=== PATIENT | female | born 1950 | race Caucasian/White ===

== ENCOUNTER 2020-09-18 14:49 | Emergency (ER) | payer MEDICARE ==
[~2020-09-18 14:49] MED LIST: ADVAIR 100-501 EACH INH; ADVAIR 250/5028 PUFF INH; ALPRAZOLAM 0.50.5 MG PO; AMLODIPINE BESYL5 MG PO; ANTIVERT25 MG PO; ASCORBIC ACID500 MG PO; ATIVAN1 MG PO; AUGMENTIN 500-1 EACH PO; AZITHROMYCIN250 MG PO; BACLOFEN 20MG T20 MG PO; BUSPIRONE HCL15 MG PO; CARAFATE1 GM PO; CEFDINIR300 MG PO; CELEBREX PO; CELECOXIB50 MG PO; CLARITIN10 MG PO; CYMBALTA20 MG PO; CYMBALTA60 MG PO; DICLOFENAC SODI75 MG PO; FEOSOL325 MG PO; FLUOXETINE HCL20 MG PO; HCTZ12.5 MG PO; HYDROCODON-ACE1 EAC2 PO; HYDROCODON-ACE1 EAC4 PO; IBUPROFEN400 MG PO; K-DUR20 MEQ PO; LIPITOR 10MG TA10 MG PO; LISINOPRIL-HCT1 EACH PO; LISINOPRIL20 MG PO; MEDROL 4MG DOSEP4 MG PO; NARCAN4 MG; NORCO 5-325 TA1 EACH PO; NORCO 7.5-3251 EACH PO; NORVASC5 MG PO; PREDNISONE 20MG20 MG PO; PREDNISONE20 MG PO; PRINIVIL20 MG PO; PROTONIX 40MG T40 MG PO; PROZAC20 MG PO; REMERON15 MG PO; SINGULAIR10 MG PO; SUMATRIPTAN SUC25 MG PO; TOPROL XL 25MG25 MG PO; TRAZODONE 100M100 MG PO; VENTOLIN (2.5 MG/3 M INH; VENTOLIN HFA IN18 GM INH; VOLTAREN **OUT75 MG PO; VOLTAREN100 GM TOP; XANAX0.5 MG PO; ZPAK PO; ZYPREXA 5MG TABL5 MG PO; ZYPREXA5 MG PO
[2020-09-18 17:27] LABS: BASOPHIL 0.3 % (0-2); EOSINOPHIL 1.4 % (0-7); HGB 13.3 g/dl (12.5-16.0); LYMPHOCYTE 19.1 % (15-48); MCH 30.2 pg (25.0-31.0); MCHC 33.3 g/dL (32.0-36.0); MCV 90.7 fL (78.0-100.0); MONOCYTE 5.7 % (0-12); MPV 9.6 fL (6.0-9.5); NEUTROPHIL 73.1 % (41-80); NRBC 0; PLT 325 K/uL (150-400); RBC 4.41 M/uL (4.20-5.40); RDW 12.8 % (11.5-14.0); WBC 11.8 K/uL (4.0-10.5)
[2020-09-18 17:35] LABS: ALBUMIN 2.9 g/dL (3.4-5.0); BILIRUBIN - TOTAL 0.1 mg/dL (0.2-1.0); BUN/CREAT RATIO (CALC) 13.6 RATIO; CREATININE 0.59 mg/dL (0.51-0.95); POTASSIUM 3.3 mmol/L (3.5-5.1); TOTAL PROTEIN 5.9 g/dL (6.4-8.2)
[2020-09-18 18:43] LABS: BILIRUBIN NEGATIVE (NEGATIVE); BLOOD NEGATIVE Ery/uL (NEGATIVE); CLARITY CLEAR (CLEAR); COLOR YELLOW (YELLOW); GLUCOSE (U) NORMAL (NORMAL); LEUKOCYTES NEGATIVE Leu/uL (NEGATIVE); NITRITE NEGATIVE (NEGATIVE); PROTEIN NEGATIVE (NEGATIVE); SPECIFIC GRAVITY <=1.005 (1.001-1.030); UROBILINOGEN 0.2 mg/dL (0.2-1.0)
[2020-09-18 18:47] LABS: LACTIC ACID 0.5 mmol/L (0.4-1.9)
[2020-09-18] MEDS ORDERED: ZOFRAN4 M1 PO (19:08)
== END 2020-09-18 19:24 | disposition home or self-care (01) ==
LOC: FER 14:49
PROVIDERS: Nurse Practitioner Family
DX: R11.2 Nausea with vomiting, unspecified (principal); R10.11 Right upper quadrant pain; M54.5 Low back pain; R53.83 Other fatigue; R63.0 Anorexia; I10 Essential (primary) hypertension; J44.9 Chronic obstructive pulmonary disease, unspecified; F17.210 Nicotine dependence, cigarettes, uncomplicated; Z88.8 Allergy status to other drugs, medicaments and biological substances
CPT/HCPCS: 36415; 80053; 81003; 83605; 83690; 85025; J1885; J7030; Q9967

== ENCOUNTER 2020-10-10 08:38 | Day surgery (SDCO) | payer MEDICARE ==
[~2020-10-10 08:38] MED LIST changes: +ZOFRAN4 M1 PO
[2020-10-10 09:28] LABS: BILIRUBIN NEGATIVE (NEGATIVE); BLOOD NEGATIVE Ery/uL (NEGATIVE); CLARITY CLEAR (CLEAR); COLOR YELLOW (YELLOW); GLUCOSE (U) NORMAL (NORMAL); LEUKOCYTES NEGATIVE Leu/uL (NEGATIVE); NITRITE NEGATIVE (NEGATIVE); PROTEIN NEGATIVE (NEGATIVE); UROBILINOGEN 0.2 mg/dL (0.2-1.0)
[2020-10-10 09:30] LABS: AMPHETAMINES NEGATIVE (NEGATIVE); BARBITURATES NEGATIVE (NEGATIVE); ECSTASY (MDMA) NEGATIVE (NEGATIVE); MARIJUANA (THC) NEGATIVE (NEGATIVE); METHADONE NEGATIVE (NEGATIVE); OPIATES NEGATIVE (NEGATIVE); OXYCODONE NEGATIVE (NEGATIVE)
[2020-10-10 10:02] LABS: BASOPHIL 0.5 % (0-2); EOSINOPHIL 1.9 % (0-7); HCT 42.9 % (37.0-47.0); LYMPHOCYTE 14.7 % (15-48); MCH 29.8 pg (25.0-31.0); MCHC 32.6 g/dL (32.0-36.0); MCV 91.3 fL (78.0-100.0); MONOCYTE 6.3 % (0-12); MPV 10.2 fL (6.0-9.5); NEUTROPHIL 75.3 % (41-80); NRBC 0; PLT 343 K/uL (150-400); RDW 13.1 % (11.5-14.0); WBC 10.9 K/uL (4.0-10.5)
[2020-10-10 10:20] LABS: INR 0.94 (0.9-1.2); PROTHROMBIN TIME 11.9 SECONDS (11.4-13.6); PTT 32.1 SECONDS (22.2-34.7)
[2020-10-10 10:28] LABS: ALBUMIN 3.1 g/dL (3.4-5.0); ALKALINE PHOSHATASE 77 U/L (46-116); ALT 14 U/L (14-59); AST 12 U/L (15-37); BILIRUBIN - TOTAL 0.2 mg/dL (0.2-1.0); BUN 19 mg/dL (7-18); CHLORIDE 106 mmol/L (98-107); CO2 (BICARBONATE) 28 mmol/L (21-32); CREATININE 0.95 mg/dL (0.51-0.95); GLOBULIN (CALCULATION) 3.7 g/dL; GLUCOSE 100 mg/dL (74-106); POTASSIUM 3.7 mmol/L (3.5-5.1); TOTAL PROTEIN 6.8 g/dL (6.4-8.2)
[2020-10-10 10:48] LABS: LACTIC ACID 0.7 mmol/L (0.4-1.9)
[2020-10-10] MEDS ORDERED: HCTZ25 MG PO (14:14)
[2020-10-10] MEDS ORDERED: CRESTOR20 MG PO (14:15)
--- NOTE | 2020-10-11 01:25 | NUR ---
3365- Patient tells aide that she "was having a hard time breathing, chest pain, and my arm is hurting." Went to patients room to assess the patient, she was having 6/10 pain in the left arm, chest pain, 94% on 1 liter nasal cannula, 101 heart rate, BP 77/56. Patient requests pain medication 2 times during work up. I replied, "we'll have to see what the ROADABILITY MACHINE OPERATOR would like to order". Went to ROADABILITY MACHINE OPERATOR. EKG, stat troponin ordered and do not give pain medicine due to low BP. EKG resulted NSR and troponin came back negative at less than 0.017. ROADABILITY MACHINE OPERATOR ordered a liter bolus of normal saline to run at 500 ml/hr. Started bolus at 0019.
[2020-10-11 06:16] LABS: BASOPHIL 0.4 % (0-2); EOSINOPHIL 1.9 % (0-7); HCT 34.9 % (37.0-47.0); HGB 11.1 g/dl (12.5-16.0); LYMPHOCYTE 20.5 % (15-48); MCH 29.2 pg (25.0-31.0); MCHC 31.8 g/dL (32.0-36.0); MCV 91.8 fL (78.0-100.0); MONOCYTE 6.9 % (0-12); MPV 10.5 fL (6.0-9.5); NEUTROPHIL 69.3 % (41-80); NRBC 0; PLT 296 K/uL (150-400); RDW 13.2 % (11.5-14.0); WBC 8.4 K/uL (4.0-10.5)
[2020-10-11 06:46] LABS: ALBUMIN 2.4 g/dL (3.4-5.0); BILIRUBIN - TOTAL 0.1 mg/dL (0.2-1.0); BUN/CREAT RATIO (CALC) 22.6 RATIO; CREATININE 0.53 mg/dL (0.51-0.95); GLOBULIN (CALCULATION) 2.9 g/dL; POTASSIUM 3.4 mmol/L (3.5-5.1); TOTAL PROTEIN 5.3 g/dL (6.4-8.2)
[2020-10-12] MEDS ORDERED: TOPROL XL 25MG25 MG PO (07:54)
== END 2020-10-12 11:40 | disposition home health service (06) ==
LOC: FER 08:38 → FMS 12:42
PROVIDERS: Emergency Medicine; Nurse Practitioner; ADMIT Internal Medicine
DX: I95.1 Orthostatic hypotension (principal); J44.9 Chronic obstructive pulmonary disease, unspecified; G89.29 Other chronic pain; I10 Essential (primary) hypertension; K21.9 Gastro-esophageal reflux disease without esophagitis; R11.2 Nausea with vomiting, unspecified; R19.7 Diarrhea, unspecified; F31.9 Bipolar disorder, unspecified; F17.210 Nicotine dependence, cigarettes, uncomplicated; K27.9 Peptic ulcer, site unspecified, unspecified as acute or chronic, without hemorrhage or perforation; Z23 Encounter for immunization; Z79.891 Long term (current) use of opiate analgesic; Z79.899 Other long term (current) drug therapy; Z88.8 Allergy status to other drugs, medicaments and biological substances; Z20.822 Contact with and (suspected) exposure to COVID-19
CPT/HCPCS: 36415; 36600; 70450; 71045; 80053; 80305; 81003; 82803; 83605; 84484; 85025; 85610; 85730; 87088; 90662; 93005; 94010; 94640; 97162; 97165; 97530-GP; 97535; G0008; G0378; G0480; J1650; J7030; J7040; J7120; U0002

== ENCOUNTER 2020-11-28 10:26 | Inpatient (IN) | payer MEDICARE ==
[~2020-11-28 10:26] MED LIST changes: +CRESTOR20 MG PO; +HCTZ25 MG PO
[2020-11-28 11:41] LABS: INR 0.91 (0.9-1.2); PROTHROMBIN TIME 11.6 SECONDS (11.4-13.6)
[2020-11-28 11:49] LABS: LACTIC ACID 0.6 mmol/L (0.4-1.9)
[2020-11-28 11:51] LABS: BASOPHIL 0.4 % (0-2); EOSINOPHIL 2.8 % (0-7); HCT 40.6 % (37.0-47.0); HGB 13.5 g/dl (12.5-16.0); MCH 29.3 pg (25.0-31.0); MCHC 33.3 g/dL (32.0-36.0); MCV 88.3 fL (78.0-100.0); MONOCYTE 7.4 % (0-12); MPV 10.2 fL (6.0-9.5); NEUTROPHIL 72.8 % (41-80); NRBC 0; PLT 280 K/uL (150-400); RDW 13.2 % (11.5-14.0); WBC 10.2 K/uL (4.0-10.5)
[2020-11-28 11:52] LABS: BILIRUBIN - TOTAL 0.2 mg/dL (0.2-1.0); C-REACTIVE PROTEIN 4.2 mg/dL (<=0.90); CREATININE 0.92 mg/dL (0.51-0.95); GLOBULIN (CALCULATION) 3.3 g/dL; MAGNESIUM 1.3 mg/dL (1.8-2.4); POTASSIUM 3.3 mmol/L (3.5-5.1); TOTAL PROTEIN 6.3 g/dL (6.4-8.2)
[2020-11-28 12:15] LABS: BILIRUBIN NEGATIVE (NEGATIVE); BLOOD NEGATIVE Ery/uL (NEGATIVE); CLARITY CLEAR (CLEAR); COLOR YELLOW (YELLOW); GLUCOSE (U) NORMAL (NORMAL); LEUKOCYTES NEGATIVE Leu/uL (NEGATIVE); NITRITE NEGATIVE (NEGATIVE); PROTEIN NEGATIVE (NEGATIVE); UROBILINOGEN 0.2 mg/dL (0.2-1.0)
[2020-11-28] MEDS ORDERED: TOPROL XL 25MG25 MG PO (15:19)
[2020-11-28] MEDS ORDERED: SINGULAIR10 MG PO (15:20)
[2020-11-28] MEDS ORDERED: BACLOFEN 10MG T10 MG PO (15:21)
[2020-11-28] MEDS ORDERED: REMERON15 MG PO (15:22)
[2020-11-28] MEDS ORDERED: CYMBALTA 30MG C30 MG PO (15:23)
[2020-11-28] MEDS ORDERED: PROTONIX 40MG T40 MG PO (15:24)
[2020-11-28] MEDS ORDERED: BUSPIRONE HCL15 MG PO (15:24)
[2020-11-28] MEDS ORDERED: ZYPREXA 5MG TABL5 MG PO (15:25)
[2020-11-28] MEDS ORDERED: CARAFATE1 GM PO (15:26)
[2020-11-28] MEDS ORDERED: K-DUR20 MEQ PO (15:30)
[2020-11-28] MEDS ORDERED: PREDNISONE5 MG PO (15:31)
[2020-11-28] MEDS ORDERED: VITAMIN D310 MC3 PO (15:33)
[2020-11-29 06:16] LABS: BUN/CREAT RATIO (CALC) 15.5 RATIO; CREATININE 0.58 mg/dL (0.51-0.95)
[2020-11-29 06:20] LABS: HCT 35.3 % (37.0-47.0); HGB 11.3 g/dl (12.5-16.0); MCH 28.9 pg (25.0-31.0); MCV 90.3 fL (78.0-100.0); MPV 11.6 fL (6.0-9.5); RBC 3.91 M/uL (4.20-5.40); RDW 13.3 % (11.5-14.0); WBC 7.9 K/uL (4.0-10.5)
[2020-11-29] MEDS ORDERED: ZOFRAN4 M1 PO (10:16)
--- NOTE | 2020-11-29 11:43 | NUR ---
11/29/20 Ms. Araujo lives alone. She has a rw, 3in1, and s.chair. [facility] has followed in the past. Ms. Araujo has a rw, 3in1, and s. chair. A stud driver comes to the home as needed. Ms. Araujo drives and is able to prepare her meals. She is independent with ADLs. - No discharge needs are anticipated.
== END 2020-11-29 11:50 | disposition home or self-care (01) | DRG 312 ==
LOC: FER 10:26 → FTCU 14:01
PROVIDERS: Emergency Medicine; ADMIT Hospitalist
DX: I95.2 Hypotension due to drugs (principal); E86.0 Dehydration; K21.9 Gastro-esophageal reflux disease without esophagitis; E78.5 Hyperlipidemia, unspecified; T44.7X5A Adverse effect of beta-adrenoreceptor antagonists, initial encounter; Z20.822 Contact with and (suspected) exposure to COVID-19; T43.595A Adverse effect of other antipsychotics and neuroleptics, initial encounter; T43.025A Adverse effect of tetracyclic antidepressants, initial encounter; T43.215A Adverse effect of selective serotonin and norepinephrine reuptake inhibitors, initial encounter; I10 Essential (primary) hypertension; J45.909 Unspecified asthma, uncomplicated; F31.9 Bipolar disorder, unspecified; D50.9 Iron deficiency anemia, unspecified; G89.29 Other chronic pain; F17.210 Nicotine dependence, cigarettes, uncomplicated; Z87.11 Personal history of peptic ulcer disease; Z90.49 Acquired absence of other specified parts of digestive tract; Z90.710 Acquired absence of both cervix and uterus; Z98.890 Other specified postprocedural states; Z88.8 Allergy status to other drugs, medicaments and biological substances
CPT/HCPCS: 36415; 71045; 80048; 80053; 81003; 83540; 83550; 83605; 83690; 83735; 84145; 84443; 84484; 85025; 85610; 86140; 87040; 87088; 93005; J1170; J1720; J2405; J7030; J7512; Q9967; U0002

== ENCOUNTER 2020-12-25 14:49 | Emergency (ER) | payer MEDICARE ==
[~2020-12-25 14:49] MED LIST changes: +BACLOFEN 10MG T10 MG PO; +CYMBALTA 30MG C30 MG PO; +PREDNISONE5 MG PO; +VITAMIN D310 MC3 PO
[2020-12-25 15:34] LABS: INR 0.95 (0.9-1.2); PTT 21.8 SECONDS (22.2-34.7)
[2020-12-25 15:47] LABS: CKMB 1.8 ng/mL (0.0-3.6); PRO-BNP 189 pg/mL (<125)
[2020-12-25 16:03] LABS: BASOPHIL 0.4 % (0-2); EOSINOPHIL 1.1 % (0-7); HCT 42.6 % (37.0-47.0); HGB 14.3 g/dl (12.5-16.0); LYMPHOCYTE 15.3 % (15-48); MCH 29.4 pg (25.0-31.0); MCHC 33.6 g/dL (32.0-36.0); MCV 87.5 fL (78.0-100.0); MONOCYTE 7.5 % (0-12); MPV 10.8 fL (6.0-9.5); NEUTROPHIL 75.2 % (41-80); NRBC 0; PLT 247 K/uL (150-400); RBC 4.87 M/uL (4.20-5.40); WBC 14.2 K/uL (4.0-10.5)
[2020-12-25 16:04] LABS: LACTIC ACID 1.5 mmol/L (0.4-1.9)
[2020-12-25 16:17] LABS: ALBUMIN 3.3 g/dL (3.4-5.0); BILIRUBIN - TOTAL 0.3 mg/dL (0.2-1.0); BUN/CREAT RATIO (CALC) 8.7 RATIO; CREATININE 1.03 mg/dL (0.51-0.95); POTASSIUM 2.9 mmol/L (3.5-5.1); TOTAL PROTEIN 6.3 g/dL (6.4-8.2)
[2020-12-25 16:50] LABS: BILIRUBIN NEGATIVE (NEGATIVE); BLOOD NEGATIVE Ery/uL (NEGATIVE); CLARITY CLEAR (CLEAR); COLOR YELLOW (YELLOW); GLUCOSE (U) NORMAL (NORMAL); LEUKOCYTES NEGATIVE Leu/uL (NEGATIVE); NITRITE NEGATIVE (NEGATIVE); PROTEIN NEGATIVE (NEGATIVE); UROBILINOGEN 0.2 mg/dL (0.2-1.0); pH 5.5 (5.0-9.0)
== END 2020-12-25 17:56 | disposition home or self-care (01) ==
LOC: FER 14:49
PROVIDERS: Emergency Medicine
DX: I95.9 Hypotension, unspecified (principal); I10 Essential (primary) hypertension; J44.9 Chronic obstructive pulmonary disease, unspecified; Z20.822 Contact with and (suspected) exposure to COVID-19; F17.210 Nicotine dependence, cigarettes, uncomplicated; Z88.8 Allergy status to other drugs, medicaments and biological substances
CPT/HCPCS: 36415; 71045; 80053; 81003; 82553; 83605; 83690; 83880; 84443; 84484; 85025; 85610; 85730; 87040; 93005; J3480; J7030; U0002

== ENCOUNTER 2020-12-26 06:28 | Emergency (ER) | payer MEDICARE ==
[2020-12-26 08:17] LABS: BUN/CREAT RATIO (CALC) 12.5 RATIO; CREATININE 0.72 mg/dL (0.51-0.95); POTASSIUM 3.1 mmol/L (3.5-5.1)
== END 2020-12-26 09:05 | disposition home or self-care (01) ==
LOC: FER 06:28
PROVIDERS: Emergency Medicine
DX: S93.402A Sprain of unspecified ligament of left ankle, initial encounter (principal); F17.210 Nicotine dependence, cigarettes, uncomplicated; W19.XXXA Unspecified fall, initial encounter; Y92.009 Unspecified place in unspecified non-institutional (private) residence as the place of occurrence of the external cause
CPT/HCPCS: 36415; 73610; 73630; 80048

== ENCOUNTER 2021-01-24 15:02 | Emergency (ER) | payer MEDICARE ==
[2021-01-24 15:51] LABS: BASOPHIL 0.3 % (0-2); EOSINOPHIL 1.3 % (0-7); HCT 41.7 % (37.0-47.0); LYMPHOCYTE 16.6 % (15-48); MCH 29.1 pg (25.0-31.0); MCHC 33.6 g/dL (32.0-36.0); MCV 86.7 fL (78.0-100.0); MONOCYTE 6.4 % (0-12); MPV 10.1 fL (6.0-9.5); NRBC 0; PLT 267 K/uL (150-400); RBC 4.81 M/uL (4.20-5.40); RDW 13.7 % (11.5-14.0); WBC 12.7 K/uL (4.0-10.5)
[2021-01-24 16:08] LABS: CREATININE 0.61 mg/dL (0.51-0.95); POTASSIUM 3.1 mmol/L (3.5-5.1)
[2021-01-24 16:15] LABS: LACTIC ACID 0.8 mmol/L (0.4-1.9)
[2021-01-24] MEDS ORDERED: K-DUR20 MEQ PO (17:17)
== END 2021-01-24 17:23 | disposition home or self-care (01) ==
LOC: FER 15:02
PROVIDERS: Emergency Medicine
DX: J44.9 Chronic obstructive pulmonary disease, unspecified (principal); E87.6 Hypokalemia; F17.210 Nicotine dependence, cigarettes, uncomplicated; Z88.8 Allergy status to other drugs, medicaments and biological substances
CPT/HCPCS: 36415; 71046; 80048; 83605; 85025

== ENCOUNTER 2021-04-18 11:11 | Emergency (ER) | payer MEDICARE, OTHER | END 2021-04-18 12:05 | disposition home or self-care (01) | LOC: FER 11:11 | DX: U07.1 COVID-19 (principal); I10 Essential (primary) hypertension; J44.9 Chronic obstructive pulmonary disease, unspecified; F17.210 Nicotine dependence, cigarettes, uncomplicated | CPT/HCPCS: 71045 ==

== ENCOUNTER 2021-04-20 02:41 | Inpatient (IN) | payer MEDICARE ==
[~2021-04-20] VITALS: Ht 170.2 cm; Wt 58.6 kg
[2021-04-20 04:33] LABS: BASOPHIL 0.3 % (0-2); EOSINOPHIL 0 % (0-7); HCT 41.6 % (37.0-47.0); HGB 13.6 g/dl (12.5-16.0); LYMPHOCYTE 14.3 % (15-48); MCH 27.5 pg (25.0-31.0); MCHC 32.7 g/dL (32.0-36.0); MCV 84.2 fL (78.0-100.0); MONOCYTE 4.9 % (0-12); MPV 9.7 fL (6.0-9.5); NEUTROPHIL 78.8 % (41-80); NRBC 0; PLT 402 K/uL (150-400); RBC 4.94 M/uL (4.20-5.40); RDW 13.9 % (11.5-14.0); WBC 22.8 K/uL (4.0-10.5)
[2021-04-20 04:50] LABS: ALBUMIN 2.9 g/dL (3.4-5.0); BILIRUBIN - TOTAL 0.2 mg/dL (0.2-1.0); CREATININE 1.25 mg/dL (0.51-0.95); GLOBULIN (CALCULATION) 3.9 g/dL; POTASSIUM 2.5 mmol/L (3.5-5.1); TOTAL PROTEIN 6.8 g/dL (6.4-8.2)
[2021-04-20 05:22] LABS: LACTIC ACID 1.9 mmol/L (0.4-1.9)
[2021-04-20 07:53] LABS: BILIRUBIN NEGATIVE (NEGATIVE); BLOOD NEGATIVE Ery/uL (NEGATIVE); CLARITY CLEAR (CLEAR); COLOR YELLOW (YELLOW); GLUCOSE (U) NORMAL (NORMAL); LEUKOCYTES NEGATIVE Leu/uL (NEGATIVE); NITRITE NEGATIVE (NEGATIVE); PROTEIN NEGATIVE (NEGATIVE); UROBILINOGEN 0.2 mg/dL (0.2-1.0); pH 6.5 (5.0-9.0)
[2021-04-21 06:19] LABS: BASOPHIL 0.2 % (0-2); EOSINOPHIL 0 % (0-7); HCT 32.6 % (37.0-47.0); HGB 10.8 g/dl (12.5-16.0); LYMPHOCYTE 7.8 % (15-48); MCH 28.3 pg (25.0-31.0); MCHC 33.1 g/dL (32.0-36.0); MCV 85.3 fL (78.0-100.0); MONOCYTE 6.2 % (0-12); MPV 9.6 fL (6.0-9.5); NEUTROPHIL 83.9 % (41-80); NRBC 0; PLT 319 K/uL (150-400); RBC 3.82 M/uL (4.20-5.40); RDW 14.4 % (11.5-14.0); WBC 20.5 K/uL (4.0-10.5)
[2021-04-21 06:51] LABS: ALBUMIN 2.5 g/dL (3.4-5.0); BILIRUBIN - TOTAL 0.2 mg/dL (0.2-1.0); BUN/CREAT RATIO (CALC) 30.6 RATIO; C-REACTIVE PROTEIN 5.7 mg/dL (<=0.90); CREATININE 0.72 mg/dL (0.51-0.95); GLOBULIN (CALCULATION) 2.7 g/dL; MAGNESIUM 1.9 mg/dL (1.8-2.4); PHOSPHORUS 2.4 mg/dL (2.6-4.7); POTASSIUM 2.8 mmol/L (3.5-5.1); TOTAL PROTEIN 5.2 g/dL (6.4-8.2)
[2021-04-21 18:14] LABS: BUN/CREAT RATIO (CALC) 25.3 RATIO; CREATININE 0.75 mg/dL (0.51-0.95); MAGNESIUM 1.7 mg/dL (1.8-2.4)
[2021-04-21 18:15] LABS: POTASSIUM 4.5 mmol/L (3.5-5.1)
[2021-04-22 07:07] LABS: BASOPHIL 0.3 % (0-2); EOSINOPHIL 0 % (0-7); HCT 31.8 % (37.0-47.0); HGB 10.3 g/dl (12.5-16.0); LYMPHOCYTE 7.7 % (15-48); MCH 27.8 pg (25.0-31.0); MCHC 32.4 g/dL (32.0-36.0); MCV 85.9 fL (78.0-100.0); MONOCYTE 4.4 % (0-12); MPV 9.8 fL (6.0-9.5); NEUTROPHIL 84.4 % (41-80); NRBC 0; PLT 311 K/uL (150-400); RDW 14.5 % (11.5-14.0)
[2021-04-22 07:16] LABS: WBC 15.9 K/uL (4.0-10.5)
[2021-04-22 07:48] LABS: ALBUMIN 2.3 g/dL (3.4-5.0); BILIRUBIN - TOTAL 0.2 mg/dL (0.2-1.0); BUN/CREAT RATIO (CALC) 36.2 RATIO; CREATININE 0.58 mg/dL (0.51-0.95); GLOBULIN (CALCULATION) 3.1 g/dL; MAGNESIUM 1.6 mg/dL (1.8-2.4); POTASSIUM 2.8 mmol/L (3.5-5.1); TOTAL PROTEIN 5.4 g/dL (6.4-8.2); VANCOMYCIN, TROUGH 6.2 ug/mL (10-20)
[2021-04-22 14:55] LABS: BUN/CREAT RATIO (CALC) 22.8 RATIO; CREATININE 0.57 mg/dL (0.51-0.95); POTASSIUM 2.6 mmol/L (3.5-5.1)
[2021-04-23 01:27] LABS: CREATININE 0.5 mg/dL (0.51-0.95)
[2021-04-23 01:28] LABS: POTASSIUM 4.3 mmol/L (3.5-5.1)
[2021-04-23 06:13] LABS: BASOPHIL 0.6 % (0-2); EOSINOPHIL 0 % (0-7); HCT 32.3 % (37.0-47.0); HGB 10.5 g/dl (12.5-16.0); LYMPHOCYTE 9.6 % (15-48); MCHC 32.5 g/dL (32.0-36.0); MCV 86.1 fL (78.0-100.0); MONOCYTE 4.9 % (0-12); MPV 9.6 fL (6.0-9.5); NRBC 0; PLT 322 K/uL (150-400); RBC 3.75 M/uL (4.20-5.40); RDW 14.3 % (11.5-14.0); WBC 15.6 K/uL (4.0-10.5)
[2021-04-23 06:41] LABS: ALBUMIN 2.4 g/dL (3.4-5.0); BILIRUBIN - TOTAL 0.2 mg/dL (0.2-1.0); CREATININE 0.5 mg/dL (0.51-0.95); GLOBULIN (CALCULATION) 3.1 g/dL; MAGNESIUM 1.8 mg/dL (1.8-2.4); POTASSIUM 3.8 mmol/L (3.5-5.1); TOTAL PROTEIN 5.5 g/dL (6.4-8.2)
[2021-04-23] MEDS ORDERED: DEXAMETHASONE 2M2 MG PO (12:14)
--- NOTE | 2021-04-23 12:54 | NUR ---
04/23/21 A referal was made to [facility] for home 02 and [facility] was informed of patient's discharge; per patient choice.
== END 2021-04-23 15:30 | disposition home health service (06) | DRG 871 ==
LOC: FER 02:41 → FMS 09:23
PROVIDERS: Emergency Medicine; Family Medicine; Nurse Practitioner; ADMIT Internal Medicine
PROC: 8E0ZXY6 Isolation (ICD-10-PCS; principal; 2021-04-20)
PROC: XW033E5 Introduction of Remdesivir Anti-infective into Peripheral Vein, Percutaneous Approach, New Technology Group 5 (ICD-10-PCS; 2021-04-20)
PROC: XW0DXM6 Introduction of Baricitinib into Mouth and Pharynx, External Approach, New Technology Group 6 (ICD-10-PCS; 2021-04-21)
DX: A41.89 Other specified sepsis (principal); U07.1 COVID-19; J12.82 Pneumonia due to coronavirus disease 2019; J96.01 Acute respiratory failure with hypoxia; J44.1 Chronic obstructive pulmonary disease with (acute) exacerbation; J44.0 Chronic obstructive pulmonary disease with (acute) lower respiratory infection; I10 Essential (primary) hypertension; D50.9 Iron deficiency anemia, unspecified; R65.20 Severe sepsis without septic shock; K21.9 Gastro-esophageal reflux disease without esophagitis; F17.210 Nicotine dependence, cigarettes, uncomplicated; G89.29 Other chronic pain; F31.9 Bipolar disorder, unspecified; E87.6 Hypokalemia; E83.42 Hypomagnesemia; F41.9 Anxiety disorder, unspecified; Z79.899 Other long term (current) drug therapy; Z88.8 Allergy status to other drugs, medicaments and biological substances; Z90.710 Acquired absence of both cervix and uterus; Z90.49 Acquired absence of other specified parts of digestive tract; Z90.3 Acquired absence of stomach [part of]; Z98.890 Other specified postprocedural states
CPT/HCPCS: 36415; 71045; 71275; 80048; 80053; 80202; 81003; 82728; 83605; 83735; 84100; 84145; 84484; 85025; 85379; 86140; 87040; 93005; 94010; 94640; 94664; 94760; 94762; C9399; J1650; J2405; J2543; J2930; J3370; J3475; J3480; J7030; J7050; J8540; Q9967; U0002

== ENCOUNTER 2021-05-26 18:11 | Inpatient (IN) | payer MEDICARE ==
[~2021-05-26] VITALS: Ht 167.6 cm; Wt 64.9 kg
[~2021-05-26 18:11] MED LIST changes: +DEXAMETHASONE 2M2 MG PO
[2021-05-26 20:23] LABS: BASOPHIL 0.5 % (0-2); EOSINOPHIL 0 % (0-7); HCT 45.8 % (37.0-47.0); HGB 14.8 g/dl (12.5-16.0); LYMPHOCYTE 5.9 % (15-48); MCH 28.5 pg (25.0-31.0); MCHC 32.3 g/dL (32.0-36.0); MCV 88.1 fL (78.0-100.0); MONOCYTE 5.7 % (0-12); MPV 10.7 fL (6.0-9.5); NRBC 0.3; PLT 368 K/uL (150-400); RDW 15.2 % (11.5-14.0); WBC 25.8 K/uL (4.0-10.5)
[2021-05-26 20:27] LABS: NEUTROPHIL 87.3 % (41-80)
[2021-05-26 20:43] LABS: ALBUMIN 2.7 g/dL (3.4-5.0); BILIRUBIN - TOTAL 0.3 mg/dL (0.2-1.0); BUN/CREAT RATIO (CALC) 18.2 RATIO; CREATININE 2.03 mg/dL (0.51-0.95); GLOBULIN (CALCULATION) 3.8 g/dL; TOTAL PROTEIN 6.5 g/dL (6.4-8.2)
[2021-05-26 21:03] LABS: CORONAVIRUS 2019 SARS-COV-2 NEGATIVE (NEGATIVE); INFLUENZA A NAA NEGATIVE (NEGATIVE)
[2021-05-26 22:20] LABS: BILIRUBIN 1+ mg/dL (NEGATIVE); BLOOD 2+ Ery/uL (NEGATIVE); CLARITY CLEAR (CLEAR); COLOR YELLOW (YELLOW); GLUCOSE (U) NORMAL (NORMAL); LEUKOCYTES TRACE Leu/uL (NEGATIVE); NITRITE NEGATIVE (NEGATIVE); PROTEIN 2+ mg/dL (NEGATIVE); SPECIFIC GRAVITY 1.025 (1.001-1.030); UROBILINOGEN 0.2 mg/dL (0.2-1.0)
[2021-05-26 22:26] LABS: URINARY WBC 20-50
[2021-05-26 22:27] LABS: BACTERIA 4+
[2021-05-27 02:44] LABS: LACTIC ACID 3.9 mmol/L (0.4-1.9)
--- NOTE | 2021-05-27 02:55 | NUR ---
JUSTEN NOTIFIED OF LACTIC OF 3.9
[2021-05-27 05:26] LABS: BASOPHIL 0.4 % (0-2); EOSINOPHIL 0.4 % (0-7); HCT 39.3 % (37.0-47.0); HGB 12.5 g/dl (12.5-16.0); LYMPHOCYTE 9.2 % (15-48); MCH 28.3 pg (25.0-31.0); MCHC 31.8 g/dL (32.0-36.0); MCV 89.1 fL (78.0-100.0); MONOCYTE 11.2 % (0-12); MPV 11.3 fL (6.0-9.5); NEUTROPHIL 77.6 % (41-80); NRBC 0.4; PLT 318 K/uL (150-400); RBC 4.41 M/uL (4.20-5.40); RDW 15.5 % (11.5-14.0)
[2021-05-27 05:27] LABS: WBC 15.6 K/uL (4.0-10.5)
[2021-05-27 05:57] LABS: BUN/CREAT RATIO (CALC) 19.5 RATIO; CREATININE 2.1 mg/dL (0.51-0.95); MAGNESIUM 1.6 mg/dL (1.8-2.4); POTASSIUM 3.1 mmol/L (3.5-5.1)
[2021-05-28 05:53] LABS: BUN 42 mg/dL (7-18); BUN/CREAT RATIO (CALC) 32.1 RATIO; C-REACTIVE PROTEIN > 18.00 mg/dL (<=0.90); CHLORIDE 104 mmol/L (98-107); CO2 (BICARBONATE) 20 mmol/L (21-32); CREATININE 1.31 mg/dL (0.51-0.95); GLUCOSE 102 mg/dL (74-106); MAGNESIUM 2.8 mg/dL (1.8-2.4); PHOSPHORUS 4.2 mg/dL (2.6-4.7)
--- NOTE | 2021-05-28 14:12 | NUR ---
05/28/21 Ms. Araujo lives alone. She has home 02, rw, 3in1, and s. chair. [facility] is current and have been notified of admission. Patient is not interested in a SNF placement.
[2021-05-29 18:00] LABS: BASOPHIL 0.4 % (0-2); EOSINOPHIL 0.4 % (0-7); HCT 29.4 % (37.0-47.0); LYMPHOCYTE 8.1 % (15-48); MCH 28.1 pg (25.0-31.0); MCHC 32.3 g/dL (32.0-36.0); MONOCYTE 7.2 % (0-12); MPV 10.7 fL (6.0-9.5); NEUTROPHIL 81.7 % (41-80); NRBC 0.2; PLT 165 K/uL (150-400); RBC 3.38 M/uL (4.20-5.40); RDW 15.1 % (11.5-14.0)
[2021-05-29 18:02] LABS: HGB 9.5 g/dl (12.5-16.0)
[2021-05-29 18:37] LABS: ALBUMIN 1.4 g/dL (3.4-5.0); BILIRUBIN - TOTAL 0.2 mg/dL (0.2-1.0); CREATININE 0.78 mg/dL (0.51-0.95); POTASSIUM 2.6 mmol/L (3.5-5.1); TOTAL PROTEIN 4.4 g/dL (6.4-8.2)
[2021-05-30 06:02] LABS: BASOPHIL 0.4 % (0-2); EOSINOPHIL 0.6 % (0-7); HCT 28.2 % (37.0-47.0); LYMPHOCYTE 9.7 % (15-48); MCH 28.1 pg (25.0-31.0); MCHC 31.9 g/dL (32.0-36.0); MCV 88.1 fL (78.0-100.0); MONOCYTE 10.6 % (0-12); MPV 11.4 fL (6.0-9.5); NRBC 0; PLT 154 K/uL (150-400); RDW 15.2 % (11.5-14.0)
[2021-05-30 06:14] LABS: WBC 10.6 K/uL (4.0-10.5)
[2021-05-30 06:19] LABS: ALBUMIN 1.3 g/dL (3.4-5.0); BILIRUBIN - TOTAL 0.3 mg/dL (0.2-1.0); BUN/CREAT RATIO (CALC) 12.3 RATIO; CREATININE 0.73 mg/dL (0.51-0.95); GLOBULIN (CALCULATION) 2.7 g/dL
[2021-05-30 06:31] LABS: POTASSIUM 2.3 mmol/L (3.5-5.1)
[2021-05-30 15:07] LABS: BUN/CREAT RATIO (CALC) 11.3 RATIO; CREATININE 0.71 mg/dL (0.51-0.95); MAGNESIUM 1.7 mg/dL (1.8-2.4); POTASSIUM 2.7 mmol/L (3.5-5.1)
[2021-05-31 04:22] LABS: ALBUMIN 1.4 g/dL (3.4-5.0); BILIRUBIN - TOTAL 0.3 mg/dL (0.2-1.0); BUN/CREAT RATIO (CALC) 10.1 RATIO; CREATININE 0.69 mg/dL (0.51-0.95); GLOBULIN (CALCULATION) 2.9 g/dL; TOTAL PROTEIN 4.3 g/dL (6.4-8.2)
[2021-05-31 05:01] LABS: BASOPHIL 0.5 % (0-2); EOSINOPHIL 0.6 % (0-7); HCT 28.9 % (37.0-47.0); HGB 9.4 g/dl (12.5-16.0); LYMPHOCYTE 11.5 % (15-48); MCH 28.3 pg (25.0-31.0); MCHC 32.5 g/dL (32.0-36.0); MONOCYTE 10.2 % (0-12); MPV 11.3 fL (6.0-9.5); NEUTROPHIL 67.4 % (41-80); NRBC 0; PLT 177 K/uL (150-400); RBC 3.32 M/uL (4.20-5.40); RDW 15.6 % (11.5-14.0)
[2021-05-31 05:02] LABS: WBC 12.1 K/uL (4.0-10.5)
[2021-05-31 14:49] LABS: BUN/CREAT RATIO (CALC) 12.7 RATIO; CREATININE 0.63 mg/dL (0.51-0.95); MAGNESIUM 1.9 mg/dL (1.8-2.4); POTASSIUM 3.8 mmol/L (3.5-5.1)
--- NOTE | 2021-05-31 18:05 | NUR ---
05/31/21 Please notify [facility] at [phone] if patient is discharged over the weekend
[2021-06-01 04:35] LABS: BASOPHIL 0.6 % (0-2); EOSINOPHIL 0.4 % (0-7); HGB 9.3 g/dl (12.5-16.0); LYMPHOCYTE 9.9 % (15-48); MCH 28.4 pg (25.0-31.0); MCHC 32.1 g/dL (32.0-36.0); MCV 88.4 fL (78.0-100.0); MONOCYTE 9.7 % (0-12); MPV 10.6 fL (6.0-9.5); NRBC 0.1; PLT 204 K/uL (150-400); RBC 3.28 M/uL (4.20-5.40); RDW 15.7 % (11.5-14.0); WBC 13.9 K/uL (4.0-10.5)
[2021-06-01 04:36] LABS: NEUTROPHIL 70.1 % (41-80)
[2021-06-01 05:00] LABS: ALBUMIN 1.4 g/dL (3.4-5.0); BILIRUBIN - TOTAL 0.3 mg/dL (0.2-1.0); BUN/CREAT RATIO (CALC) 15.3 RATIO; CREATININE 0.59 mg/dL (0.51-0.95); GLOBULIN (CALCULATION) 2.9 g/dL; MAGNESIUM 1.6 mg/dL (1.8-2.4); POTASSIUM 4.1 mmol/L (3.5-5.1); TOTAL PROTEIN 4.3 g/dL (6.4-8.2)
[2021-06-01] MEDS ORDERED: MAG-OXIDE 400M400 MG PO (08:08)
[2021-06-01] MEDS ORDERED: ASPIRIN81 MG PO (08:08)
[2021-06-01] MEDS ORDERED: TRAZODONE 100M100 MG PO (08:08)
== END 2021-06-01 09:30 | disposition home or self-care (01) | DRG 871 ==
LOC: FER 18:11 → FTCU 22:45
PROVIDERS: Allergy & Immunology; Emergency Medicine; Family Medicine; ADMIT Internal Medicine
DX: A41.9 Sepsis, unspecified organism (principal); G93.41 Metabolic encephalopathy; N30.00 Acute cystitis without hematuria; N17.9 Acute kidney failure, unspecified; R65.20 Severe sepsis without septic shock; E87.6 Hypokalemia; E83.42 Hypomagnesemia; I10 Essential (primary) hypertension; Z20.822 Contact with and (suspected) exposure to COVID-19; L89.322 Pressure ulcer of left buttock, stage 2; J44.9 Chronic obstructive pulmonary disease, unspecified; F31.9 Bipolar disorder, unspecified; K21.9 Gastro-esophageal reflux disease without esophagitis; D50.9 Iron deficiency anemia, unspecified; G89.29 Other chronic pain; F17.210 Nicotine dependence, cigarettes, uncomplicated; R47.1 Dysarthria and anarthria; R19.7 Diarrhea, unspecified; I73.9 Peripheral vascular disease, unspecified; K27.9 Peptic ulcer, site unspecified, unspecified as acute or chronic, without hemorrhage or perforation; Z86.16 Personal history of COVID-19; Z90.49 Acquired absence of other specified parts of digestive tract; Z90.710 Acquired absence of both cervix and uterus; Z88.8 Allergy status to other drugs, medicaments and biological substances; Z80.3 Family history of malignant neoplasm of breast; Z80.8 Family history of malignant neoplasm of other organs or systems
CPT/HCPCS: 36415; 36600; 70450; 70551; 71045; 71250; 80048; 80053; 80202; 81001; 82803; 82962; 83036; 83605; 83690; 83735; 83880; 84100; 84145; 84484; 85025; 86140; 87040; 87076; 87088; 87186; 87449; 92507; 92523; 93005; 93970; 96365; 96375; 97162; 97166; 97530-GP; 97535; J0692; J1650; J2405; J3360; J3370; J3475; J3480; J7030; J7050; U0002

== ENCOUNTER 2021-06-04 08:54 | Day surgery (SDCO) | payer MEDICARE ==
[~2021-06-04] VITALS: Ht 171.4 cm; Wt 54.9 kg
[~2021-06-04 08:54] MED LIST changes: +ASPIRIN81 MG PO; +MAG-OXIDE 400M400 MG PO
[2021-06-04 11:03] LABS: BILIRUBIN NEGATIVE (NEGATIVE); BLOOD NEGATIVE Ery/uL (NEGATIVE); CLARITY CLEAR (CLEAR); COLOR YELLOW (YELLOW); GLUCOSE (U) NORMAL (NORMAL); LEUKOCYTES NEGATIVE Leu/uL (NEGATIVE); NITRITE NEGATIVE (NEGATIVE); PROTEIN NEGATIVE (NEGATIVE); UROBILINOGEN 0.2 mg/dL (0.2-1.0); pH 5.5 (5.0-9.0)
[2021-06-04 11:03] LABS: INR 1.02 (0.9-1.2); PROTHROMBIN TIME 12.8 SECONDS (11.8-13.4); PTT 32.5 SECONDS (24.4-34.7)
[2021-06-04 11:22] LABS: BILIRUBIN - TOTAL 0.2 mg/dL (0.2-1.0); BUN/CREAT RATIO (CALC) 11.4 RATIO; CREATININE 0.79 mg/dL (0.51-0.95); MAGNESIUM 1.3 mg/dL (1.8-2.4); POTASSIUM 3.3 mmol/L (3.5-5.1)
[2021-06-04 11:23] LABS: PRO-BNP 156 pg/mL (<125)
[2021-06-04 11:38] LABS: BASOPHIL 0.5 % (0-2); EOSINOPHIL 0.8 % (0-7); HCT 32.5 % (37.0-47.0); HGB 10.2 g/dl (12.5-16.0); LYMPHOCYTE 8.6 % (15-48); MCH 27.9 pg (25.0-31.0); MCHC 31.4 g/dL (32.0-36.0); MONOCYTE 4.7 % (0-12); MPV 10.3 fL (6.0-9.5); NEUTROPHIL 80.3 % (41-80); NRBC 0; PLT 412 K/uL (150-400); RBC 3.65 M/uL (4.20-5.40); RDW 15.5 % (11.5-14.0); WBC 17.1 K/uL (4.0-10.5)
[2021-06-04 11:40] LABS: LACTIC ACID 1.2 mmol/L (0.4-1.9)
[2021-06-05 07:58] LABS: BASOPHIL 0.4 % (0-2); HCT 27.4 % (37.0-47.0); HGB 8.4 g/dl (12.5-16.0); LYMPHOCYTE 11.8 % (15-48); MCH 27.5 pg (25.0-31.0); MCHC 30.7 g/dL (32.0-36.0); MCV 89.8 fL (78.0-100.0); MONOCYTE 4.9 % (0-12); MPV 10.1 fL (6.0-9.5); NEUTROPHIL 79.7 % (41-80); NRBC 0; PLT 328 K/uL (150-400); RBC 3.05 M/uL (4.20-5.40); RDW 15.8 % (11.5-14.0); WBC 14.2 K/uL (4.0-10.5)
[2021-06-05 08:17] LABS: ALBUMIN 1.3 g/dL (3.4-5.0); BILIRUBIN - TOTAL 0.2 mg/dL (0.2-1.0); BUN/CREAT RATIO (CALC) 12.3 RATIO; CREATININE 0.57 mg/dL (0.51-0.95); GLOBULIN (CALCULATION) 2.7 g/dL; MAGNESIUM 1.5 mg/dL (1.8-2.4); POTASSIUM 3.1 mmol/L (3.5-5.1)
[2021-06-05 12:34] LABS: RETICULOCYTE COUNT 1.9 % (1.0-2.0)
[2021-06-05 13:52] LABS: FOLIC ACID (SERUM) 9.3 ng/mL (8.6-58.9)
[2021-06-05 14:13] LABS: IRON % SATURATION 12.6 %SAT (20-50)
[2021-06-05 16:08] LABS: BILIRUBIN NEGATIVE (NEGATIVE); BLOOD NEGATIVE Ery/uL (NEGATIVE); CLARITY CLEAR (CLEAR); COLOR YELLOW (YELLOW); GLUCOSE (U) NORMAL (NORMAL); LEUKOCYTES NEGATIVE Leu/uL (NEGATIVE); NITRITE NEGATIVE (NEGATIVE); PROTEIN NEGATIVE (NEGATIVE); UROBILINOGEN 0.2 mg/dL (0.2-1.0)
[2021-06-05 16:21] LABS: BACTERIA TRACE; URINARY RBC RARE
[2021-06-07 09:05] LABS: BASOPHIL 0.6 % (0-2); EOSINOPHIL 1.8 % (0-7); HCT 30.6 % (37.0-47.0); HGB 9.6 g/dl (12.5-16.0); LYMPHOCYTE 12.1 % (15-48); MCH 27.7 pg (25.0-31.0); MCHC 31.4 g/dL (32.0-36.0); MCV 88.4 fL (78.0-100.0); MONOCYTE 5.8 % (0-12); MPV 9.6 fL (6.0-9.5); NEUTROPHIL 78.6 % (41-80); NRBC 0; PLT 472 K/uL (150-400); RBC 3.46 M/uL (4.20-5.40); RDW 15.2 % (11.5-14.0); WBC 10.5 K/uL (4.0-10.5)
[2021-06-07 09:15] LABS: BUN/CREAT RATIO (CALC) 16.7 RATIO; CREATININE 0.42 mg/dL (0.51-0.95); MAGNESIUM 1.6 mg/dL (1.8-2.4); POTASSIUM 4.2 mmol/L (3.5-5.1)
== END 2021-06-10 19:52 ==
LOC: FER 08:54 → FTCU 13:07
PROVIDERS: Emergency Medicine; Internal Medicine; ADMIT Family Medicine
DX: R53.81 Other malaise (principal); E83.42 Hypomagnesemia; E87.6 Hypokalemia; D50.9 Iron deficiency anemia, unspecified; J44.9 Chronic obstructive pulmonary disease, unspecified; J96.10 Chronic respiratory failure, unspecified whether with hypoxia or hypercapnia; F17.210 Nicotine dependence, cigarettes, uncomplicated; K21.9 Gastro-esophageal reflux disease without esophagitis; U07.1 COVID-19; N17.9 Acute kidney failure, unspecified; I95.9 Hypotension, unspecified; R51.9 Headache, unspecified; M25.522 Pain in left elbow; S91.115A Laceration without foreign body of left lesser toe(s) without damage to nail, initial encounter; I10 Essential (primary) hypertension; G89.4 Chronic pain syndrome; R53.1 Weakness; N39.0 Urinary tract infection, site not specified; B96.89 Other specified bacterial agents as the cause of diseases classified elsewhere; Z87.11 Personal history of peptic ulcer disease; Z79.82 Long term (current) use of aspirin; Z79.899 Other long term (current) drug therapy; Z88.8 Allergy status to other drugs, medicaments and biological substances; Z90.3 Acquired absence of stomach [part of]; Z99.81 Dependence on supplemental oxygen; W01.10XA Fall on same level from slipping, tripping and stumbling with subsequent striking against unspecified object, initial encounter; Y92.002 Bathroom of unspecified non-institutional (private) residence as the place of occurrence of the external cause
CPT/HCPCS: 36415; 36600; 70450; 71045; 73590; 73610; 73630; 80048; 80053; 81001; 81003; 82550; 82607; 82746; 82803; 83540; 83550; 83605; 83735; 83874; 83880; 84484; 85025; 85610; 85730; 87040; 87076; 87088; 87186; 93005; 94640; 94664; 97110; 97162; 97166; 97530; 97530-GP; G0378; J0696; J1885; J2916; J3475; J7030; U0002

== ENCOUNTER 2021-10-31 04:16 | Emergency (ER) | payer MEDICARE ==
[2021-10-31] MEDS ORDERED: NORCO 5-325 TA1 EACH PO (04:51)
== END 2021-10-31 06:59 | disposition home or self-care (01) ==
LOC: FER 04:16
DX: M79.601 Pain in right arm (principal); M25.521 Pain in right elbow; J44.9 Chronic obstructive pulmonary disease, unspecified; F17.210 Nicotine dependence, cigarettes, uncomplicated; Z88.8 Allergy status to other drugs, medicaments and biological substances; W01.0XXA Fall on same level from slipping, tripping and stumbling without subsequent striking against object, initial encounter; Y92.009 Unspecified place in unspecified non-institutional (private) residence as the place of occurrence of the external cause
CPT/HCPCS: 73080; 73100

== ENCOUNTER 2022-01-05 13:58 | Emergency (ER) | payer MEDICARE ==
[2022-01-05 15:39] LABS: BASOPHIL 0.6 % (0-2); EOSINOPHIL 0.7 % (0-7); HCT 48.6 % (37.0-47.0); HGB 15.9 g/dl (12.5-16.0); LYMPHOCYTE 17.7 % (15-48); MCH 30.4 pg (25.0-31.0); MCHC 32.7 g/dL (32.0-36.0); MCV 92.9 fL (78.0-100.0); MONOCYTE 5.7 % (0-12); MPV 9.8 fL (6.0-9.5); NEUTROPHIL 74.1 % (41-80); NRBC 0; PLT 380 K/uL (150-400); RBC 5.23 M/uL (4.20-5.40); RDW 13.9 % (11.5-14.0); WBC 18.1 K/uL (4.0-10.5)
[2022-01-05 15:58] LABS: BUN/CREAT RATIO (CALC) 29.4 RATIO; CREATININE 0.68 mg/dL (0.51-0.95); POTASSIUM 4.5 mmol/L (3.5-5.1)
[2022-01-05 16:15] LABS: BILIRUBIN NEGATIVE (NEGATIVE); BLOOD NEGATIVE Ery/uL (NEGATIVE); CLARITY CLEAR (CLEAR); COLOR YELLOW (YELLOW); GLUCOSE (U) NORMAL (NORMAL); LEUKOCYTES NEGATIVE Leu/uL (NEGATIVE); NITRITE NEGATIVE (NEGATIVE); PROTEIN NEGATIVE (NEGATIVE); UROBILINOGEN 0.2 mg/dL (0.2-1.0)
[2022-01-05 17:22] LABS: LACTIC ACID 0.4 mmol/L (0.4-1.9)
[2022-01-05] MEDS ORDERED: DOXYCYCLINE HY100 MG PO (18:17)
== END 2022-01-05 18:32 | disposition home or self-care (01) ==
LOC: FER 13:58
PROVIDERS: Nurse Practitioner Family
DX: R53.81 Other malaise (principal); R05.9 Cough, unspecified; E11.9 Type 2 diabetes mellitus without complications; J44.9 Chronic obstructive pulmonary disease, unspecified; F17.210 Nicotine dependence, cigarettes, uncomplicated; Z88.1 Allergy status to other antibiotic agents; Z88.8 Allergy status to other drugs, medicaments and biological substances
CPT/HCPCS: 36415; 71045; 80048; 81003; 83605; 85025

== ENCOUNTER 2022-01-07 16:58 | Emergency (ER) | payer MEDICARE ==
[~2022-01-07] VITALS: Ht 170.2 cm; Wt 57.6 kg
[~2022-01-07 16:58] MED LIST changes: +DOXYCYCLINE HY100 MG PO
[2022-01-07 19:24] LABS: BASOPHIL 0.5 % (0-2); EOSINOPHIL 0.3 % (0-7); HCT 49.6 % (37.0-47.0); HGB 16.1 g/dl (12.5-16.0); LYMPHOCYTE 21.3 % (15-48); MCHC 32.5 g/dL (32.0-36.0); MCV 92.4 fL (78.0-100.0); MONOCYTE 6.8 % (0-12); MPV 9.8 fL (6.0-9.5); NRBC 0; PLT 385 K/uL (150-400); RBC 5.37 M/uL (4.20-5.40); RDW 13.7 % (11.5-14.0); WBC 17.3 K/uL (4.0-10.5)
[2022-01-07 19:44] LABS: LACTIC ACID 1.3 mmol/L (0.4-1.9)
[2022-01-07 19:45] LABS: ALBUMIN 3.8 g/dL (3.4-5.0); BILIRUBIN - TOTAL 0.4 mg/dL (0.2-1.0); CREATININE 0.74 mg/dL (0.51-0.95); GLOBULIN (CALCULATION) 3.5 g/dL; POTASSIUM 4.1 mmol/L (3.5-5.1); TOTAL PROTEIN 7.3 g/dL (6.4-8.2)
[2022-01-07 21:41] LABS: CORONAVIRUS 2019 SARS-COV-2 NEGATIVE (NEGATIVE); INFLUENZA A NAA NEGATIVE (NEGATIVE)
[2022-01-07 22:47] LABS: BILIRUBIN NEGATIVE (NEGATIVE); BLOOD NEGATIVE Ery/uL (NEGATIVE); CLARITY CLEAR (CLEAR); COLOR YELLOW (YELLOW); GLUCOSE (U) NORMAL (NORMAL); LEUKOCYTES NEGATIVE Leu/uL (NEGATIVE); NITRITE NEGATIVE (NEGATIVE); PROTEIN NEGATIVE (NEGATIVE); SPECIFIC GRAVITY 1.015 (1.001-1.030); UROBILINOGEN 0.2 mg/dL (0.2-1.0)
== END 2022-01-08 04:01 | disposition home or self-care (01) ==
LOC: FER 16:58
PROVIDERS: Emergency Medicine
DX: J18.9 Pneumonia, unspecified organism (principal); J45.909 Unspecified asthma, uncomplicated; E11.9 Type 2 diabetes mellitus without complications; F17.200 Nicotine dependence, unspecified, uncomplicated; Z88.2 Allergy status to sulfonamides; Z88.8 Allergy status to other drugs, medicaments and biological substances; Z88.6 Allergy status to analgesic agent; Z20.822 Contact with and (suspected) exposure to COVID-19
CPT/HCPCS: 36415; 70450; 71045; 80053; 81003; 83605; 84145; 84484; 85025; 85379; 87040; 93005; J2405; J2543; J7030; U0002

== ENCOUNTER 2022-03-12 13:10 | Emergency (ER) | payer MEDICARE ==
[2022-03-12 14:13] LABS: BASOPHIL 0.3 % (0-2); EOSINOPHIL 0.4 % (0-7); HCT 36.9 % (37.0-47.0); HGB 11.8 g/dl (12.5-16.0); LYMPHOCYTE 15.2 % (15-48); MCH 29.5 pg (25.0-31.0); MCV 92.3 fL (78.0-100.0); MONOCYTE 7.3 % (0-12); MPV 9.6 fL (6.0-9.5); NEUTROPHIL 76.1 % (41-80); NRBC 0; PLT 267 K/uL (150-400); RDW 12.9 % (11.5-14.0); WBC 9.9 K/uL (4.0-10.5)
[2022-03-12 14:26] LABS: BILIRUBIN - TOTAL 0.2 mg/dL (0.2-1.0); BUN/CREAT RATIO (CALC) 22.7 RATIO; CREATININE 0.75 mg/dL (0.51-0.95); POTASSIUM 4.2 mmol/L (3.5-5.1)
[2022-03-12 14:37] LABS: BILIRUBIN NEGATIVE (NEGATIVE); BLOOD NEGATIVE Ery/uL (NEGATIVE); CLARITY CLEAR (CLEAR); COLOR YELLOW (YELLOW); GLUCOSE (U) NORMAL (NORMAL); LEUKOCYTES NEGATIVE Leu/uL (NEGATIVE); NITRITE NEGATIVE (NEGATIVE); PROTEIN NEGATIVE (NEGATIVE); SPECIFIC GRAVITY 1.015 (1.001-1.030); UROBILINOGEN 0.2 mg/dL (0.2-1.0)
== END 2022-03-12 16:16 | disposition home or self-care (01) ==
LOC: FER 13:10
PROVIDERS: Physician Assistant Medical
DX: R60.0 Localized edema (principal); M25.571 Pain in right ankle and joints of right foot; M25.572 Pain in left ankle and joints of left foot; E11.9 Type 2 diabetes mellitus without complications; J44.9 Chronic obstructive pulmonary disease, unspecified; F17.210 Nicotine dependence, cigarettes, uncomplicated; Z79.84 Long term (current) use of oral hypoglycemic drugs
CPT/HCPCS: 36415; 71046; 73610; 80053; 81003; 83880; 85025

== ENCOUNTER 2022-04-02 16:47 | Emergency (ER) | payer MEDICARE ==
[2022-04-02 18:42] LABS: BASOPHIL 0.4 % (0-2); EOSINOPHIL 0.2 % (0-7); HCT 39.8 % (37.0-47.0); HGB 12.9 g/dl (12.5-16.0); LYMPHOCYTE 15.8 % (15-48); MCH 29.9 pg (25.0-31.0); MCHC 32.4 g/dL (32.0-36.0); MCV 92.1 fL (78.0-100.0); MONOCYTE 4.2 % (0-12); MPV 10.1 fL (6.0-9.5); NEUTROPHIL 78.6 % (41-80); NRBC 0; PLT 302 K/uL (150-400); RBC 4.32 M/uL (4.20-5.40); RDW 13.2 % (11.5-14.0); WBC 17.7 K/uL (4.0-10.5)
[2022-04-02 18:55] LABS: BUN/CREAT RATIO (CALC) 20.3 RATIO; CREATININE 0.74 mg/dL (0.51-0.95); POTASSIUM 4.2 mmol/L (3.5-5.1)
[2022-04-02 19:02] LABS: BILIRUBIN NEGATIVE (NEGATIVE); BLOOD NEGATIVE Ery/uL (NEGATIVE); CLARITY CLEAR (CLEAR); COLOR YELLOW (YELLOW); GLUCOSE (U) NORMAL (NORMAL); LEUKOCYTES NEGATIVE Leu/uL (NEGATIVE); NITRITE NEGATIVE (NEGATIVE); PROTEIN NEGATIVE (NEGATIVE); SPECIFIC GRAVITY 1.025 (1.001-1.030); UROBILINOGEN 0.2 mg/dL (0.2-1.0)
[2022-04-02] MEDS ORDERED: PREDNISONE 20MG20 MG PO (20:48)
[2022-04-02] MEDS ORDERED: ONDANSETRON ODT4 MG PO (20:48)
[2022-04-02] MEDS ORDERED: VIBRAMYCIN100 MG PO (20:48)
[2022-04-02] MEDS ORDERED: MUCINEX DM ER1 EACH PO (20:50)
== END 2022-04-02 21:01 | disposition home or self-care (01) ==
LOC: FER 16:47
PROVIDERS: Emergency Medicine
DX: J44.1 Chronic obstructive pulmonary disease with (acute) exacerbation (principal); I10 Essential (primary) hypertension; F17.200 Nicotine dependence, unspecified, uncomplicated; Z88.2 Allergy status to sulfonamides; Z20.822 Contact with and (suspected) exposure to COVID-19
CPT/HCPCS: 36415; 71045; 71275; 80048; 81003; 83880; 85025; 87088; 93005; J2270; J2405; Q9967; U0002

== ENCOUNTER 2022-04-15 01:56 | Emergency (ER) | payer MEDICARE ==
[~2022-04-15 01:56] MED LIST changes: +MUCINEX DM ER1 EACH PO; +ONDANSETRON ODT4 MG PO; +VIBRAMYCIN100 MG PO
[2022-04-15 03:42] LABS: BASOPHIL 0.4 % (0-2); EOSINOPHIL 2.3 % (0-7); HCT 38.4 % (37.0-47.0); HGB 12.1 g/dl (12.5-16.0); LYMPHOCYTE 15.2 % (15-48); MCH 29.8 pg (25.0-31.0); MCHC 31.5 g/dL (32.0-36.0); MCV 94.6 fL (78.0-100.0); MONOCYTE 8.3 % (0-12); MPV 10.8 fL (6.0-9.5); NEUTROPHIL 72.6 % (41-80); NRBC 0; PLT 226 K/uL (150-400); RBC 4.06 M/uL (4.20-5.40); RDW 13.7 % (11.5-14.0); WBC 11.3 K/uL (4.0-10.5)
[2022-04-15 04:08] LABS: ALBUMIN 2.8 g/dL (3.4-5.0); BILIRUBIN - TOTAL 0.2 mg/dL (0.2-1.0); BUN/CREAT RATIO (CALC) 14.4 RATIO; CREATININE 0.97 mg/dL (0.51-0.95); GLOBULIN (CALCULATION) 3.3 g/dL; POTASSIUM 3.4 mmol/L (3.5-5.1); TOTAL PROTEIN 6.1 g/dL (6.4-8.2)
[2022-04-15 04:19] LABS: CORONAVIRUS 2019 SARS-COV-2 NEGATIVE (NEGATIVE); INFLUENZA A NAA NEGATIVE (NEGATIVE)
[2022-04-15 04:38] LABS: BILIRUBIN NEGATIVE (NEGATIVE); BLOOD NEGATIVE Ery/uL (NEGATIVE); CLARITY CLEAR (CLEAR); COLOR YELLOW (YELLOW); GLUCOSE (U) NORMAL (NORMAL); LEUKOCYTES NEGATIVE Leu/uL (NEGATIVE); NITRITE NEGATIVE (NEGATIVE); PROTEIN NEGATIVE (NEGATIVE); UROBILINOGEN 0.2 mg/dL (0.2-1.0)
[2022-04-15] MEDS ORDERED: NORCO 5-325 TA1 EACH PO (07:01)
== END 2022-04-15 07:06 | disposition home or self-care (01) ==
LOC: FER 01:56
PROVIDERS: Internal Medicine
DX: M79.604 Pain in right leg (principal); M79.605 Pain in left leg; R51.9 Headache, unspecified; R91.1 Solitary pulmonary nodule; E11.9 Type 2 diabetes mellitus without complications; J44.9 Chronic obstructive pulmonary disease, unspecified; F17.210 Nicotine dependence, cigarettes, uncomplicated; Z20.822 Contact with and (suspected) exposure to COVID-19; Z88.6 Allergy status to analgesic agent
CPT/HCPCS: 36415; 70450; 71250; 80053; 81003; 85025; J7120; U0002

== ENCOUNTER 2022-04-19 23:12 | Emergency (ER) | payer MEDICARE ==
[2022-04-20 00:04] LABS: BASOPHIL 0.3 % (0-2); EOSINOPHIL 4.1 % (0-7); HCT 33.7 % (37.0-47.0); HGB 10.8 g/dl (12.5-16.0); LYMPHOCYTE 15.3 % (15-48); MCH 29.8 pg (25.0-31.0); MCV 93.1 fL (78.0-100.0); MONOCYTE 8.6 % (0-12); NRBC 0; PLT 242 K/uL (150-400); RBC 3.62 M/uL (4.20-5.40); RDW 13.4 % (11.5-14.0)
[2022-04-20 00:35] LABS: ALBUMIN 2.4 g/dL (3.4-5.0); BILIRUBIN - TOTAL 0.2 mg/dL (0.2-1.0); BUN/CREAT RATIO (CALC) 14.7 RATIO; CREATININE 0.95 mg/dL (0.51-0.95); GLOBULIN (CALCULATION) 3.1 g/dL; POTASSIUM 3.6 mmol/L (3.5-5.1); TOTAL PROTEIN 5.5 g/dL (6.4-8.2)
[2022-04-20 01:12] LABS: CORONAVIRUS 2019 SARS-COV-2 NEGATIVE (NEGATIVE); INFLUENZA A NAA NEGATIVE (NEGATIVE)
[2022-04-20 01:52] LABS: BILIRUBIN NEGATIVE (NEGATIVE); BLOOD NEGATIVE Ery/uL (NEGATIVE); CLARITY CLEAR (CLEAR); COLOR YELLOW (YELLOW); GLUCOSE (U) NORMAL (NORMAL); LEUKOCYTES NEGATIVE Leu/uL (NEGATIVE); NITRITE NEGATIVE (NEGATIVE); PROTEIN NEGATIVE (NEGATIVE); SPECIFIC GRAVITY 1.015 (1.001-1.030); UROBILINOGEN 0.2 mg/dL (0.2-1.0)
[2022-04-20 01:56] LABS: BACTERIA TRACE; URINARY WBC RARE
== END 2022-04-20 05:12 | disposition home or self-care (01) ==
LOC: FER 23:12
PROVIDERS: Emergency Medicine
DX: R55 Syncope and collapse (principal); Z88.8 Allergy status to other drugs, medicaments and biological substances; Z88.2 Allergy status to sulfonamides; Z20.822 Contact with and (suspected) exposure to COVID-19
CPT/HCPCS: 36415; 70450; 71250; 80053; 81001; 84484; 85025; 87088; 93005; 94640; 94664; J2930; J7030; U0002

== ENCOUNTER 2022-04-21 12:08 | Day surgery (SDCO) | payer MEDICARE ==
[~2022-04-21] VITALS: Ht 170.2 cm; Wt 65.4 kg
[2022-04-21 14:25] LABS: BASOPHIL 0.2 % (0-2); EOSINOPHIL 0.7 % (0-7); HCT 34.7 % (37.0-47.0); HGB 11.3 g/dl (12.5-16.0); LYMPHOCYTE 13.8 % (15-48); MCH 29.8 pg (25.0-31.0); MCHC 32.6 g/dL (32.0-36.0); MCV 91.6 fL (78.0-100.0); MONOCYTE 6.3 % (0-12); MPV 9.8 fL (6.0-9.5); NEUTROPHIL 77.9 % (41-80); NRBC 0; PLT 283 K/uL (150-400); RBC 3.79 M/uL (4.20-5.40); RDW 13.7 % (11.5-14.0)
[2022-04-21 14:25] LABS: BILIRUBIN NEGATIVE (NEGATIVE); BLOOD NEGATIVE Ery/uL (NEGATIVE); CLARITY CLEAR (CLEAR); COLOR YELLOW (YELLOW); GLUCOSE (U) NORMAL (NORMAL); LEUKOCYTES NEGATIVE Leu/uL (NEGATIVE); NITRITE NEGATIVE (NEGATIVE); PROTEIN NEGATIVE (NEGATIVE); SPECIFIC GRAVITY <=1.005 (1.001-1.030); UROBILINOGEN 0.2 mg/dL (0.2-1.0)
[2022-04-21 14:35] LABS: INR 0.92 (0.9-1.2); PROTHROMBIN TIME 12.1 SECONDS (11.9-13.9); PTT 28.6 SECONDS (24.9-34.6)
[2022-04-21 14:51] LABS: ALBUMIN 2.8 g/dL (3.4-5.0); BILIRUBIN - TOTAL 0.1 mg/dL (0.2-1.0); BUN/CREAT RATIO (CALC) 19.2 RATIO; CREATININE 0.73 mg/dL (0.51-0.95); GLOBULIN (CALCULATION) 3.3 g/dL; MAGNESIUM 1.8 mg/dL (1.8-2.4); POTASSIUM 3.4 mmol/L (3.5-5.1); TOTAL PROTEIN 6.1 g/dL (6.4-8.2)
[2022-04-21 15:40] LABS: ECSTASY (MDMA) NEGATIVE (NEGATIVE); MARIJUANA (THC) NEGATIVE (NEGATIVE); METHADONE NEGATIVE (NEGATIVE)
[2022-04-21 15:41] LABS: AMPHETAMINES NEGATIVE (NEGATIVE); BARBITURATES NEGATIVE (NEGATIVE); OPIATES NEGATIVE (NEGATIVE); OXYCODONE NEGATIVE (NEGATIVE)
--- NOTE | 2022-04-21 18:02 | NUR ---
PT UNABLE TO GIVE MEDICATIONS TO NURSE. RONNIE CLOSED, CALLED SISTER SAID SHE DIDN'T WANT TO BE CALLED. JACQUELINE PATIENTS SON CALLED AND ASKED IF HE KNEW WHAT MEDS PATIENT TOOK, STATED NO.
--- NOTE | 2022-04-21 18:27 | NUR ---
COVID TEST DONE SENT TO LAB
[2022-04-22 07:05] LABS: BASOPHIL 0.4 % (0-2); EOSINOPHIL 2.9 % (0-7); HCT 35.8 % (37.0-47.0); HGB 11.2 g/dl (12.5-16.0); LYMPHOCYTE 18.7 % (15-48); MCH 29.2 pg (25.0-31.0); MCHC 31.3 g/dL (32.0-36.0); MCV 93.2 fL (78.0-100.0); MONOCYTE 5.9 % (0-12); MPV 10.1 fL (6.0-9.5); NEUTROPHIL 71.3 % (41-80); NRBC 0; PLT 281 K/uL (150-400); RBC 3.84 M/uL (4.20-5.40); RDW 14.1 % (11.5-14.0); WBC 11.2 K/uL (4.0-10.5)
[2022-04-22 07:28] LABS: BUN/CREAT RATIO (CALC) 15.9 RATIO; CREATININE 0.63 mg/dL (0.51-0.95); POTASSIUM 3.3 mmol/L (3.5-5.1)
[2022-04-22] MEDS ORDERED: BACLOFEN 10MG T10 MG PO (10:36)
[2022-04-22] MEDS ORDERED: AUGMENTIN 500-1 EACH PO (10:37)
[2022-04-22] MEDS ORDERED: DICLOFENAC35 MG PO (10:38)
[2022-04-22] MEDS ORDERED: METFORMIN HCL500 M2 PO (10:47)
[2022-04-22] MEDS ORDERED: ZYPREXA 5MG TABL5 MG PO (10:48)
[2022-04-22] MEDS ORDERED: BUSPIRONE HCL15 MG PO (10:50)
[2022-04-22] MEDS ORDERED: MAG-OXIDE 400M400 MG PO (10:51)
[2022-04-22] MEDS ORDERED: VENTOLIN HFA IN18 GM INH (10:53)
[2022-04-22] MEDS ORDERED: PREDNISONE5 MG PO (10:54)
[2022-04-23 06:53] LABS: BASOPHIL 0.4 % (0-2); EOSINOPHIL 2.8 % (0-7); HCT 35.3 % (37.0-47.0); HGB 11.2 g/dl (12.5-16.0); LYMPHOCYTE 25.3 % (15-48); MCH 29.6 pg (25.0-31.0); MCHC 31.7 g/dL (32.0-36.0); MCV 93.1 fL (78.0-100.0); MONOCYTE 6.5 % (0-12); MPV 10.1 fL (6.0-9.5); NEUTROPHIL 64.3 % (41-80); NRBC 0; PLT 270 K/uL (150-400); RBC 3.79 M/uL (4.20-5.40); RDW 13.8 % (11.5-14.0); WBC 9.9 K/uL (4.0-10.5)
[2022-04-23 07:02] LABS: IRON % SATURATION 17.9 %SAT (20-50)
[2022-04-23 07:35] LABS: BUN/CREAT RATIO (CALC) 15.5 RATIO; CREATININE 0.58 mg/dL (0.51-0.95); POTASSIUM 4.3 mmol/L (3.5-5.1)
[2022-04-23 07:38] LABS: MAGNESIUM 1.2 mg/dL (1.8-2.4)
--- NOTE | 2022-04-23 14:59 | NUR ---
04/23/22 Ms. Araujo lives alone. She has 4 children; [place]ah, out od [facility], [place], and one is estrangled. [facility] [employer] is current. Ms. Araujo is treated at [facility] r/t bipolar . She has 02, portable, 3in1, rw, and s. chair. - Dr. Syed and patient discussed the timimg of her medications. A referral was made to [facility] per pt request for nursing to: monitor medication, monitor sutures on L toe, and PT.
[2022-04-23] MEDS ORDERED: MAG-OXIDE 400M400 MG PO (15:23)
[2022-04-23] MEDS ORDERED: DOXYCYCLINE MO100 M1 PO (15:23)
[2022-04-23] MEDS ORDERED: POLY-IRON150 MG PO (15:56)
== END 2022-04-23 16:30 | disposition home health service (06) ==
LOC: FER 12:08 → FMS 15:31
PROVIDERS: Emergency Medicine; Internal Medicine; ADMIT Internal Medicine
DX: G93.41 Metabolic encephalopathy (principal); S00.83XA Contusion of other part of head, initial encounter; D72.829 Elevated white blood cell count, unspecified; S91.312A Laceration without foreign body, left foot, initial encounter; E11.40 Type 2 diabetes mellitus with diabetic neuropathy, unspecified; E83.42 Hypomagnesemia; D50.9 Iron deficiency anemia, unspecified; J44.1 Chronic obstructive pulmonary disease with (acute) exacerbation; F17.210 Nicotine dependence, cigarettes, uncomplicated; G89.4 Chronic pain syndrome; K27.9 Peptic ulcer, site unspecified, unspecified as acute or chronic, without hemorrhage or perforation; K21.9 Gastro-esophageal reflux disease without esophagitis; F31.9 Bipolar disorder, unspecified; I10 Essential (primary) hypertension; J96.11 Chronic respiratory failure with hypoxia; E87.0 Hyperosmolality and hypernatremia; R51.9 Headache, unspecified; R29.6 Repeated falls; F40.240 Claustrophobia; L89.329 Pressure ulcer of left buttock, unspecified stage; L89.319 Pressure ulcer of right buttock, unspecified stage; Z79.82 Long term (current) use of aspirin; Z79.84 Long term (current) use of oral hypoglycemic drugs; Z79.899 Other long term (current) drug therapy; Z88.8 Allergy status to other drugs, medicaments and biological substances; Z90.3 Acquired absence of stomach [part of]; Z99.81 Dependence on supplemental oxygen; Z20.822 Contact with and (suspected) exposure to COVID-19; W19.XXXA Unspecified fall, initial encounter
CPT/HCPCS: 36415; 36600; 70450; 70551; 71045; 72125; 72170; 73630; 80048; 80053; 80305; 81003; 82607; 82803; 83540; 83550; 83735; 84145; 84484; 85025; 85610; 85730; 87088; 93005; 94640; 94760; 94762; 97162; 97166; 97530-GP; G0378; J2001; J3475; J3480; J7120; J7512; U0002